=== PATIENT | male | born 2005 | race Caucasian/White ===

== ENCOUNTER 2025-06-19 15:08 | Emergency (ER) | payer OTHER ==
[~2025-06-19] VITALS: Ht 170.2 cm; Wt 61.0 kg
[2025-06-19 15:18] VITALS: O2SAT 100
[2025-06-19 16:35] VITALS: BP 116/87; PULSE 81; RESP 16; TEMP 36.6; O2SAT 100
== END 2025-06-19 16:44 | disposition home or self-care (01) ==
LOC: ER 15:08
DX: S43.005A Unspecified dislocation of left shoulder joint, initial encounter (principal); F12.90 Cannabis use, unspecified, uncomplicated; W18.39XA Other fall on same level, initial encounter; Y93.89 Activity, other specified; Y92.89 Other specified places as the place of occurrence of the external cause; Y99.8 Other external cause status
CPT/HCPCS: 23650; 73030; 99284